=== PATIENT | male | born 1960 | race Caucasian/White ===

== ENCOUNTER 2025-04-27 09:57 | Outpatient (REF) | payer OTHER, SELFPAY ==
[2025-04-27 12:06] LABS: Hematocrit 43.6 % (42.0-52.0); Hemoglobin 15.4 g/dl (14.0-18.0); Mean Corpuscular HGB Conc 35.3 g/dl (31.0-36.0); Mean Corpuscular Hemoglobin 30.1 pg (27.0-33.0); Mean Corpuscular Volume 85.3 fL (80.0-98.0); Mean Platelet Volume 8.8 fL (9.4-12.4); Platelet Count 198 X10*3/uL (160-400); Red Blood Count 5.11 X10*6/uL (4.60-5.80); Red Cell Distribution Width 12.4 % (11.0-16.0); White Blood Count 5.8 X10*3/uL (4.8-10.8)
[2025-04-27 12:36] LABS: Iron 67 mcg/dL (45-160); Percent Iron Saturation 30 % (15-50); Total Iron Binding Capacity 223 mcg/dL (228-428); Unsaturated Iron Binding 156 ug/dL
[2025-04-27 12:51] LABS: Ferritin 152 ng/mL (20-250)
== END 2025-04-27 09:58 | disposition home or self-care (01) ==
LOC: HO.LAB 09:57
PROVIDERS: PCP Internal Medicine; Visit Provider Internal Medicine
DX: R91.1 Solitary pulmonary nodule (principal); Z85.038 Personal history of other malignant neoplasm of large intestine
CPT/HCPCS: 36415; 82728; 83540; 85027; 99202

== ENCOUNTER 2025-04-27 09:57 | Outpatient (AMB) | payer OTHER, SELFPAY ==
--- NOTE | 2025-04-27 10:16 | A.OFFVIS_ITS ---
Vital Signs 04/27/25 10:18 Height 6 ft 1 in Weight 165 lb 5.547 oz BMI 21.8 BP 137/59 L Blood Pressure Location Lt brachial Position Sitting Pulse 53 Intake Visit Reasons: Abdominal pain, history of colon cancer Intake Note: Aureliano presents in the office as a new patient for abdominal pains - hx of colon cancer. CC: HE states that he is feeling okay and not having any concerns. States that him and his father both have hx of colon cancer. A few months back he was having abdominal pains but they have gotten better - due for a colonoscopy. Medication Administration Professional Required: No Allergies No Known Allergies Allergy (Verified 04/27/25 10:18) HPI Comments Details: 64 y/o M with PMH of colon cancer in 2014 who is here to establish care with gastroenterology locally. Accompanied by brother. Pt previously used to reside in [facility] and moved to [place] in 2022. Reports in 2014 had to go to ER due to severe abd pain and found to have colon perf 2/2 colon ca. Had emergency R sided hemicolectomy that same day and then had adjuvant chemotherapy x 2 years. He does not recall the hospital or the surgeon name. Pt reports he never had any surveillance colonoscopy after the colon cancer surgery. Was told he is cancer free after chemo was completed. Currently no abd pain, N,V. BMs are regular without blood. Passes a BM every other day. Pt tells me was also recently found to have a mass in his L lung on a CT PET scan done earlier this month. Seen by thoracic surgery and waiting to see pulm for further evaluation. Reports prev hx of smoking, quit 3y ago. PET scan reviewed from [facility] - also with focal uptake in lower esophagus. See full report scanned in EMR. [facility] Surgical History (Updated 04/27/25 @ 10:17 by NATY Feldman) Hx of colonoscopy Family History (Updated 04/27/25 @ 10:20 by NAYT Feldman) Father Colon cancer Review of Systems Const All systems reviewed & are unremarkable except as noted in HPI and below Physical Exam Vital Signs: Last Vital Signs Pulse 53 04/27/25 10:18 BP 137/59 L 04/27/25 10:18 BMI result Body Mass Index 21.8 No apparent distress Nonicteric Abdomen soft, nondistended Alert and oriented x3, normal gait Assessment & Plan Assessment & Plan (1) History of colon cancer: Code(s): Z85.038 - Personal history of other malignant neoplasm of large intestine Category: Medical (2) Lung nodule: Code(s): R91.1 - Solitary pulmonary nodule Category: Medical Plan Reviewed with the pt that imperative to get colo scheduled nathaniel. He is 10 years overdue for CRC surveillance. Since CT/PET shows FDG avid focus in mid esophagus, will also book him for EGD at the same time. He will need pulm clearance prior to procedures due to severe emphysema noted on imaging. Pt reports a pending pulm eval, will request medical record librarians teacher to confirm. Plan: - Urgent EGD/colo - PEG prep Rxed and instructions reviewed - CBC and iron studies ordered - Will also coordinate pulm clearance as above Follow up after scopes Orders: Orders IRON PROFILE Today Z85.038 - Personal history of other malignant neoplasm of large intestine Ferritin Today Z85.038 - Personal history of other malignant neoplasm of large intestine Complete Blood Count no Diff Today Z85.038 - Personal history of other malignant neoplasm of large intestine Medications: New peg 3350-electrolytes 236-22.74-6.74 -5.86 gram (Golytely) as per split prep instructions, until fecal effluent is clear 240 mL PO Q10M 4,000 mL 0RF colonoscopy Coding Level of Care Code New Pt Level 5 (54367) Diagnoses History of colon cancer Z85.038 Lung nodule R91.1
[2025-04-27 10:18] VITALS: BP 137/59; PULSE 53; BMI 21.8
== END 2025-04-27 11:21 | disposition home or self-care (01) ==
LOC: HO.HGI 09:57
PROVIDERS: PCP Internal Medicine; Visit Provider Internal Medicine
DX: Z85.038 Personal history of other malignant neoplasm of large intestine (principal); R91.1 Solitary pulmonary nodule
CPT/HCPCS: 99205

== ENCOUNTER 2025-09-04 11:37 | Day surgery (SDC) | payer MEDICARE, SELFPAY ==
[2025-09-03 12:59] VITALS: BP 120/74; PULSE 68; RESP 20; O2SAT 98; BMI 21.8
--- NOTE | 2025-09-03 13:16 | HO.ANESPROP2 ---
Documented by User: Belkys Cr NP 09/03/25 13:18 HPI - Anesthesia Eval Consult details Narrative: 65yo M for Upper Endoscopy and Colonoscopy GI requests preop pulmo - seen in PAT 09/03/25 - no CP/SOB. Able to work in the yard without respiratory limits, does not use inhalers. Denies hx emphysema/COPD. Pna 2023 all symptoms resolved PMFSH Active Problems Active Problems: All Active Problems Lung nodule (Acute) History of colon cancer (Acute) Past Medical History Medical History GERD (gastroesophageal reflux disease) Pulmonary emphysema Pneumonia Pulmonary nodule Colon cancer Onychomycosis SOB (shortness of breath) Family History Family History Father Colon cancer Surgical History Surgical History Hx of hand surgery History of mandibular surgery Hx of right hemicolectomy Social History Social History Are you a primary care trainer to a significant other at home: No Do you presently have visiting nurse or other home services: No Patient Tobacco Use Status: Former Tobacco user Tobacco use type: Cigarette Years Smoked: 40 Use of substances other than those prescribed or required for medical reasons: Yes Substance Use Type Other:: smokes marijuana Substance Use Frequency: Weekly Have you been hit, kicked, punched, or otherwise hurt by someone within the past year? If so, by whom?: No Spiritual Healthcare Practices: no Denominational Healthcare Practices: no Cultural Healthcare Practices: no Are you DNR?: No Advance Directives on File: No Meds Allergies Allergy/AdvReac Type Severity Reaction Status Date / Time No Known Allergies Allergy Verified 04/27/25 10:18 Home Medications ?Medication ?Instructions ?Recorded ?Confirmed ?Last Taken ?Type No Known Home Meds 09/04/25 09/04/25 Unknown History Exam Height,Weight and Vital Signs: Height 6 ft 1 in Weight 75 kg Last Vital Signs Pulse 68 09/03/25 12:59 Resp 20 09/03/25 12:59 BP 120/74 09/03/25 12:59 Pulse Ox 98 09/03/25 12:59 O2 Del Method Room Air 09/03/25 12:59 Airway Heart: RRR Lungs: CTAB Assessment and Plan Assessment Anesthesia Assessment: Chart Reviewed Documented by User: Telma Pizano MD 09/04/25 13:35 [facility] Past Medical History Medical History GERD (gastroesophageal reflux disease) Pulmonary emphysema Pneumonia Pulmonary nodule Colon cancer Onychomycosis SOB (shortness of breath) Family History Family History Father Colon cancer Surgical History Surgical History Hx of hand surgery History of mandibular surgery Hx of right hemicolectomy History of Problems with Anesthesia: No Social History Social History Are you a primary care trainer to a significant other at home: No Do you presently have visiting nurse or other home services: No Patient Tobacco Use Status: Former Tobacco user Tobacco use type: Cigarette Years Smoked: 40 Use of substances other than those prescribed or required for medical reasons: Yes Substance Use Type Other:: smokes marijuana Substance Use Frequency: Weekly Have you been hit, kicked, punched, or otherwise hurt by someone within the past year? If so, by whom?: No Spiritual Healthcare Practices: no Denominational Healthcare Practices: no Cultural Healthcare Practices: no Are you DNR?: No Advance Directives on File: No Meds Allergies Allergy/AdvReac Type Severity Reaction Status Date / Time No Known Allergies Allergy Verified 04/27/25 10:18 Home Medications ?Medication ?Instructions ?Recorded ?Confirmed ?Last Taken ?Type No Known Home Meds 09/04/25 09/04/25 Unknown History Exam Airway Mallampati Class: II (edentulous) Neck ROM: Full Denture: Upper and Lower Loose/Missing/Broken Teeth: Yes, Upper and Lower Assessment and Plan Assessment Anesthesia Assessment: Anesthesia Plan Discussed Final Anesthetic Review History of Problems with Anesthesia: No NPO: Yes ASA Class: III Patient Risk: Intermediate Procedure Risk: Intermediate Anesthetic Plan Anesthetic Plan: MAC: Disposition: Standard PACU
[2025-09-04 12:14] VITALS: BMI 21.2
--- NOTE | 2025-09-04 12:15 | MHC.SHP ---
Pre-Procedural Eval Section A - 24 Hr Update-Section A only Date of Service: 09/04/25 Section B - Complete if H&P > 30 days Chief Complaint: HX other malignant neoplasm,solitary pulmonary Details of Present Illness: Medical History (Updated 06/02/25 @ 11:34 by Kayley Stallings CNP) Blood in stool Constipation Sleep apnea Vitamin D deficiency Ovarian cyst Hirsutism History of depression History of anxiety Asthma Surgical History Hx of ovarian cystectomy Family History Father HTN (hypertension) Diabetes Mother HTN (hypertension) Diabetes Maternal Grandmother Cervical cancer Uterine cancer Maternal Grandfather Colon cancer Allergies: Allergies Allergy/AdvReac Type Severity Reaction Status Date / Time No Known Allergies Allergy Verified 04/27/25 10:18 Review of Systems Review of Systems Comment: Ten point ROS negative Exam Exam Comment: Gen appear: No acute distress HEENT: no icterus Chest: No overt resp distress Abd: soft, nontender, nondistended Psych: Stable affect, answering questions appropriately Neuro: A/Ox3 noted to move all extremities spontaneously Ext: no peripheral edema Plan Diagnosis/Plan: Unchanged I have reviewed the history and physical and performed a pertinent physical examination on my patient. No changes have occurred unless specified. Time Spent With Patient Time: Total time managing care of this patient today ____ minutes.
[2025-09-04 12:18] VITALS: BP 142/81; PULSE 69; RESP 20; TEMP 36.4; O2SAT 97
[2025-09-04] MEDS: Lactated Ringers 1,000 ML 100 ML IVCONT (12:42)
[2025-09-04] MEDS: Albuterol Sulfate (0.083%) 2.5 MG/3 ML VIAL.NEB INHALE (13:15)
--- NOTE | 2025-09-04 14:16 | P.OPN-COLO_ITS ---
Colonoscopy Operative Note Operative Note Date of Service: 09/04/25 Narrative: Procedure: Upper endoscopy and colonoscopy Indication: Personal hx of colon ca, abnormal PET scan Endoscopist: Anisa Nickerson MD Anesthesia Provider: Ambrose Brito CRNA Anesthesia type: MAC Instrument: [id number] and [id number] EGD Procedure:?? The procedure, indications, preparation and potential complications were reviewed with the patient, who indicated understanding and gave written informed consent to proceed. The endoscope was introduced through the mouth, and advanced to the 2nd part of the duodenum. The mucosa was carefully examined on slow withdrawal of the endoscope. The patient tolerated the procedure well. There were no immediate complications.? EGD Findings:? * Esophagus:? Linear ulcerations from 27 to 30 cm were noted involving the entire circumference consistent with grade D esophagitis. A long segment of salmon pink mucosa suspicious for underlying schulz's was noted from 30 to 36. The GE junction was at 36 cm displaced by a hiatal hernia with the diaphragmatic hiatus at 40 cm. Cold forceps biopsies were taken of salmon colored mucosa to r/o BE. * Stomach:? Normal gastric mucosa. Retroflexion was performed in the cardia that showed Hill grade IV hiatal hernia. * Duodenum:? Normal duodenal mucosa. Colonoscopy Procedure:? The patient was then turned for the colonoscopy. A digital rectal exam was performed which was abnormal for external hemorrhoids.? A distal attachment cap was affixed to the tip of the scope and the colonoscope was then inserted through the anus and advanced through the colon and advanced to the ileocecal anastomosis at 65 cm.?Mucosa was carefully examined under high definition white light as the instrument was slowly withdrawn in a retrograde panoramic fashion. Retroflexion was performed in rectum. The procedure was not difficult. The quality of the prep was BBPS: 3+2+2 = adequate Withdrawal time 12 minutes Limitations: No limitations Findings: Mucosa: Normal colon mucosa with end to side ileocolonic anastomosis noted in ascending colon. Both the blind end and and juan-terminal ileum were evaluated. Cold forceps biopsies were taken from the anastomosis. Protruding lesions: * A pedunculated polyp of size 25 mm was noted in rectosigmoid at 18 cm from the anal orifice. 2 cc of epinephrine was injected in the base of the polyp. Hot snare polypectomy was performed. The polyp was completely removed enbloc and retrieved. A Resolution 360 clip was placed at the polypectomy site to mitigate post polypectomy bleeding. * Large internal hemorrhoids without stigmata of recent bleeding. Impression: 1. Grade D esophagitis 2. R/o schulz's (biopsy) 3. Hiatal hernia 4. Normal stomach 5. Normal duodenum 6. Ileocolonic anastomosis (biopsy) 7. One polyp removed (epi, hot snare, clip) 8. Internal and external hemorrhoids Recommendations:?? * Follow-up path results * Start omeprazole 20 BID x 8 weeks * Repeat EGD to be scheduled in 8-12 weeks * Avoid NSAIDs * Repeat colonoscopy in 3 years if polyp is an adenoma or TVA.
[2025-09-04 14:17] VITALS: BP 119/64; PULSE 73; RESP 12; TEMP 36.1; O2SAT 96
[2025-09-04 14:30] VITALS: BP 126/68; PULSE 73; RESP 12; O2SAT 96
[2025-09-04 14:45] VITALS: BP 119/65; PULSE 73; RESP 12; TEMP 36.1; O2SAT 96
== END 2025-09-04 15:08 | disposition home or self-care (01) ==
PROVIDERS: PCP Internal Medicine; Visit Provider Internal Medicine
PROC: (CPT 45385; principal; 2025-09-04 13:30)
DX: Z12.11 Encounter for screening for malignant neoplasm of colon (principal); Z85.038 Personal history of other malignant neoplasm of large intestine; D12.5 Benign neoplasm of sigmoid colon; Z92.21 Personal history of antineoplastic chemotherapy; Z90.49 Acquired absence of other specified parts of digestive tract; Z98.0 Intestinal bypass and anastomosis status; K64.8 Other hemorrhoids; K64.4 Residual hemorrhoidal skin tags; K59.00 Constipation, unspecified; K22.70 Barrett's esophagus without dysplasia; K20.80 Other esophagitis without bleeding; K44.9 Diaphragmatic hernia without obstruction or gangrene; K21.9 Gastro-esophageal reflux disease without esophagitis; R93.89 Abnormal findings on diagnostic imaging of other specified body structures; R91.1 Solitary pulmonary nodule; Z87.01 Personal history of pneumonia (recurrent); G47.30 Sleep apnea, unspecified; E55.9 Vitamin D deficiency, unspecified; J45.909 Unspecified asthma, uncomplicated; L68.0 Hirsutism; Z87.891 Personal history of nicotine dependence; Z98.890 Other specified postprocedural states
CPT/HCPCS: 45385; 45380; 45381; 43239; 88305; 88313; J0168; J2003; J2704

== ENCOUNTER → 2025-09-04 11:37 | Outpatient (BNV) | payer MEDICARE, SELFPAY | PROVIDERS: PCP Internal Medicine; Visit Provider Internal Medicine | DX: Z12.11 Encounter for screening for malignant neoplasm of colon (principal); Z85.038 Personal history of other malignant neoplasm of large intestine; K63.5 Polyp of colon; K64.8 Other hemorrhoids; R93.89 Abnormal findings on diagnostic imaging of other specified body structures; K20.90 Esophagitis, unspecified without bleeding | CPT/HCPCS: 43239; 45381; 45385 ==